=== PATIENT | male | born 1955 | race African-American/Black ===

== ENCOUNTER 2021-03-21 10:39 | Outpatient (CLI) | payer BC ==
[2021-03-22 11:50] LABS: SARS-CoV-2 PCR by NAA Not Detected (NotDetected)
== END 2021-03-21 10:40 | disposition home or self-care (01) ==
LOC: CSHLAB 10:39
PROVIDERS: ATTEND Internal Medicine
DX: Z20.822 Contact with and (suspected) exposure to COVID-19 (principal)
CPT/HCPCS: U0003; U0005

== ENCOUNTER 2021-03-24 12:36 | Outpatient (CLI) | payer MEDICARE, BC | END 2021-03-24 12:37 | disposition home or self-care (01) | LOC: CSHCP 12:36 | PROVIDERS: ATTEND Internal Medicine | DX: G47.33 Obstructive sleep apnea (adult) (pediatric) (principal); J44.9 Chronic obstructive pulmonary disease, unspecified; R94.2 Abnormal results of pulmonary function studies | CPT/HCPCS: 94010; 94729; 94760 ==